=== PATIENT | male | born 1965 | race Caucasian/White ===

== ENCOUNTER → 2019-05-28 09:18 | Outpatient (CLI) | payer OTHER, SELFPAY ==
--- NOTE | 2019-05-28 09:23 | DI.RAD.S_ITS ---
PROCEDURE: XR SHOULDER LT MIN 2V INDICATIONS: pop, shoulder pain, unable to raise arm TECHNIQUE: 3 views of the shoulder were acquired. COMPARISON: None. FINDINGS: Bones: No fractures or dislocations. No suspicious bony lesions. Visualized ribs appear intact. Soft tissues: No suspicious soft tissue calcifications. IMPRESSION: No acute shoulder fracture or dislocation. Dictated by: Vahid Andrew M.D. on 05/28/2019 at 9:56 Approved by: Vahid Andrew M.D. on 05/28/2019 at 9:56
== END ==
PROVIDERS: PCP Family Medicine; Visit Provider Nurse Practitioner
DX: M25.512 Pain in left shoulder (principal)
CPT/HCPCS: 73030

== ENCOUNTER 2025-04-04 09:14 | Day surgery (SDC) | payer BC, SELFPAY ==
[2025-04-04 10:05] VITALS: BP 159/92; PULSE 103; RESP 16; TEMP 36.1; O2SAT 98
--- NOTE | 2025-04-04 10:18 | PM.HP.IH.1 ---
History of Present Illness History of Present Illness Date Patient Seen: 04/04/25 Time Patient Seen: 10:18 Chief complaint: Screening Colonoscopy Narrative: Alec is a 59-year-old man here for a screening colonoscopy. His last colonoscopy was about 7 years ago in [place] and polyps were removed. No known family history of colon cancer [facility] Social History Smoking Status: Former smoker alcohol intake: current Meds Home Medications and Allergies Home Medications ?Medication ?Instructions ?Recorded ?Confirmed ?Type epinephrine 0.3 mg/0.3 mL 0.3 ml IM DIRECTED 04/04/25 04/04/25 History injection, auto-injector lisinopril 5 mg tablet 5 mg PO DAILY 04/04/25 04/04/25 History metronidazole 0.75 % topical gel topical BID 04/04/25 History rosuvastatin 20 mg tablet 20 mg PO DAILY 04/04/25 04/04/25 History Allergies Allergy/AdvReac Type Severity Reaction Status Date / Time venom-honey bee AdvReac Severe Swelling Verified 04/04/25 10:04 of Lip/Tongue/Throat Exam Vital Signs (past 8 hours): - 04/04/25 10:05 Temperature 97 F L Pulse Rate 103 H Respiratory Rate 16 Blood Pressure 159/92 H Pulse Oximetry 98 Oxygen Delivery Method Room Air Oxygen Delivery Method Room Air Const General: No acute distress Assessment & Plan Assessment and plan (1) History of colon polyps: Status: Acute Plan Colonoscopy Time-Based Coding :: [TOTAL MINUTES] spent with patient and on the chart (including review of chart, obtaining history, exam, reviewing outside data, placing orders, documenting exam and treatment plan, and counseling patient) on [DATE]. [employer] Document charge(s): No
[2025-04-04] MEDS: LACTATED RINGERS 1,000 ML 42 ML IV (10:40)
--- NOTE | 2025-04-04 11:09 | PM.OP.COLON ---
Operative Date/Time/Diagnoses Date of procedure: 04/04/25 Time of procedure: 11:09 Pre-op diagnosis: History of polyps Post-op diagnosis: same Procedure & Clinicians Study performed: Colonoscopy Same procedure(s) as scheduled: Yes Surgeon: Phill Brady Anesthesia Type: MAC +/- Procedure Notes Procedure in detail: Surgeon: Phill Brady MD Anesthesia: Adrienne Toby [employer] ADMINISTRATOR Procedure: The patient was brought to the endoscopy suite, placed in left lateral decubitus position. The patient was connected to monitoring devices. A time-out was performed. Sedation was administered. Once the patient was adequately sedated, a digital rectal exam was performed and was normal. The scope was then inserted and advanced to the cecum where the appendiceal orifice was identified and photographed. The scope was then slowly withdrawn over greater than 6 minutes. The mucosa was thoroughly inspected. No polyps were identified. The scope was retroflexed in the rectum. The scope was straightened and removed. The patient was awakened and brought to recovery. Scope withdrawal time: 7 minutes Sedation time: 10 minutes EBL: 0 Findings: Normal colon Post-procedure Recommendations: Colonoscopy in 10 years Disposition: PACU
[2025-04-04 11:13] VITALS: BP 130/74; PULSE 79; RESP 15; TEMP 36.6; O2SAT 94
[2025-04-04 11:15] VITALS: BP 131/77; PULSE 76; RESP 15; TEMP 36.6; O2SAT 95
[2025-04-04 11:20] VITALS: BP 125/77; PULSE 83; RESP 15; TEMP 36.4; O2SAT 98
[2025-04-04 11:25] VITALS: BP 115/73; PULSE 80; RESP 16; TEMP 36.4; O2SAT 96
[2025-04-04 11:30] VITALS: BP 124/81; PULSE 84; RESP 16; TEMP 36.4; O2SAT 98
== END 2025-04-04 11:36 | disposition home or self-care (01) ==
PROVIDERS: PCP Family Medicine; Referring Provider Surgery; Visit Provider Surgery
PROC: 0DJD8ZZ Inspection of Lower Intestinal Tract, Via Natural or Artificial Opening Endoscopic (ICD-10-PCS; CPT 45378; principal; 2025-04-04 10:45)
DX: Z12.11 Encounter for screening for malignant neoplasm of colon (principal); Z86.0100 Personal history of colon polyps, unspecified
CPT/HCPCS: 45378; J2704